=== PATIENT | male | born 1975 | race Caucasian/White ===

== ENCOUNTER 2016-11-22 13:08 | Inpatient (IN) | payer BC ==
[2016-11-22] MEDS ORDERED: HYDROmorphone* 1 MG/ML 1 ML SYR IV ONE ×2 (13:32→15:26)
[2016-11-22] MEDS ORDERED: NS 0.9% 1000 ML* 1,000 ML IV ONE (13:32)
[2016-11-22] MEDS ORDERED: Ondansetron INJ* 2 MG/ML VIAL IV ONE ×2 (13:32→15:26)
[2016-11-22 14:09] LABS: Hematocrit 44 % (42-52); Hemoglobin 14.8 g/dl (14.0-18.0); Mean Corpuscular HGB Conc 34 g/dl (31-36); Mean Corpuscular Hemoglobin 30 pg (27-31); Mean Corpuscular Volume 88 fL (80-94); Red Blood Count 5.01 10^6/ul (4.0-5.4); Red Cell Distribution Width 13 % (10.5-15)
[2016-11-22 14:15] LABS: Comments Flag Yes
[2016-11-22 14:16] LABS: Add Diff/Slide Review? Slide Review Added
[2016-11-22 14:20] LABS: ALT 27 U/L (7-52); Alkaline Phosphatase 83 U/L (34-104); BUN/Creatinine Ratio 9.9 (8-20); Blood Urea Nitrogen 9 mg/dL (6-24); C Reactive Protein 101.08 mg/L (< 5.00); CO2 Carbon Dioxide 20 mmol/L (22-32); Chloride 104 mmol/L (101-111); EGFR African American 118.7 (>60); EGFR Non-African American 92.3 (>60); Globulin 3.2 g/dL (2-4); Glucose 125 mg/dL (70-100); Lipase < 10 U/L (11.0-82.0); Sodium 134 mmol/L (133-145); Total Protein 7.2 g/dL (6.4-8.9)
--- NOTE | 2016-11-22 14:26 | RAD ---
INDICATION: Suprapubic pain COMPARISON: None TECHNIQUE: Noncontrast axial source images were acquired from the level hemidiaphragms to the symphysis pubis as part of CT imaging for renal stone. Lung bases: The lung bases are clear. Liver: The liver is normal in size. Noncontrast imaging shows no evidence of a hepatic mass or ductal dilatation. Gallbladder: There are no calcified gallstones. There is no evidence of wall thickening or pericholecystic fluid.. Spleen: The spleen is normal in size. The noncontrast CT appearance is normal. Pancreas: Noncontrast imaging shows no pancreatic mass or ductal dilitation. Adrenal glands: No masses are identified. Kidneys/Bladder: There is no evidence of nephrolithiasis or CT evidence of hydronephrosis. Noncontrast imaging shows no evidence of a renal mass. The bladder is unremarkable.. Adenopathy: There is no evidence of intraperitoneal or retroperitoneal adenopathy. Evaluation is limited without oral contrast. Fluid collections: There is mesenteric stranding at the level of the inflammatory change of the sigmoid colon (see below). Vessels: The aorta and iliac vessels are normal in caliber. There are no significant atherosclerotic changes. The IVC appears normal Pelvic organs: The uterus and adnexa appear normal GI tract: Evaluation of the bowel is limited without oral contrast. The upper GI tract is unremarkable. There is bowel wall thickening with extensive inflammatory change with mucosal thickening and perienteric stranding at the level of the sigmoid colon. There is adjacent phlegmonous change with multiple tiny punctate foci of extraluminal air. The findings suggest a contained perforation and probable early abscess formation. There is no current organized abscess with central liquefaction. Soft tissues: No soft tissue abnormalities of the extraperitoneal abdomen or pelvis are identified. Osseous structures: There are no acute osseous findings. IMPRESSION: 1. Renal stone imaging demonstrates no CT evidence of urolithiasis. 2. Extensive sigmoid inflammatory change with contained perforation, phlegmonous change, and suspected early abscess formation. No current organized abscess that would be amenable to percutaneous intervention
[2016-11-22 14:32] LABS: Anion Gap 10 mmol/L (2-11)
[2016-11-22] MEDS ORDERED: Ciprofloxacin 400MG IVPREMIX(* 400 MG/200 ML BAG IVPB ONE (14:36)
[2016-11-22] MEDS ORDERED: metroNIDAZOLE IV 500 MG/100ML* 500 MG/100 ML BAG IVPB ONE (14:36)
[2016-11-22] MEDS ORDERED: Ondansetron INJ* 2 MG/ML VIAL IV PRN (15:29)
--- NOTE | 2016-11-22 17:00 | CONS ---
CC: Edwin Amador MD. CONSULTATION REPORT: DATE OF CONSULT: 11/22/16 CHIEF COMPLAINT: Abdominal pain. HISTORY OF PRESENT ILLNESS: The patient is a 40-year-old male, who presents with approximately 4 da ys of abdominal pain, which has gradually been building and still gotten to be quite severe. He den ies any accident, injury or trauma. He has not eaten anything unusual. He has not had nausea or vo miting. He has not had diarrhea. He has not had any blood in the stool. His appetite has been rel atively normal. His bowel function up to last day or 2 has been pretty normal. Urination is normal . He denies fever or chills and no acquaintances or friends are similarly ill. PAST MEDICAL HISTORY: Benign. PAST SURGICAL HISTORY: Negative. MEDICATIONS: He takes occasional Zyrtec for environmental allergies and occasional Zantac for heart burn symptoms. ALLERGIES: He quotes PENICILLIN. FAMILY HISTORY: Noncontributory. There is no bleeding tendencies or anesthesia reactions. 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 He is not . His closest relative is his mother who lives down in the [facility]. He is a nonsmoker. He does n ot really drink, does not use any drugs or illicit substances. MULTI-SYSTEM REVIEW: Negative for any cardiac disease, chest pain, heart pain, angina pain, or regu lar heartbeat. No emphysema, bronchitis, or lung disease. No hepatobiliary history. No diabetes, thyroid or other endocrine. No GI history. No colitis, irritable bowel, spastic colon, Crohn's dise ase or the like. No previous diverticulitis or infections. No history. No neuromuscular or psy ch issues. PHYSICAL EXAMINATION: He is a well-developed, well-nourished obese appearing male, consistent with stated age. Skin is warm and well perfused. He is not diaphoretic. He is not jaundiced. He is af ebrile. Pulse is 75 and regular. Respirations 20 and unlabored. O2 saturation is 97%. Blood press ure 154/78. Neck is supple without adenopathy. Lungs are clear bilaterally. Heart is regular with out any abnormal sounds. Abdomen is obese and soft and quite tender in the lower abdomen mostly in the suprapubic region. There is some rebound tenderness referred to that area. There is little bit of guarding. There are no palpable masses or hernia. Extremities are well perfused and without ed kay. DIAGNOSTIC STUDIES/LAB DATA: Laboratory studies reveal white blood count of 15,000 with a slight le ft shift. Hemoglobin and platelet count are normal. Electrolytes are normal. BUN, creatinine, LFT s are normal. Lipase normal. C-reactive protein elevated 101. He has had a CT scan of the abdomen and pelvis, which shows what appears to be phlegmon around the region of the sigmoid colon just abo ve the bladder. There is evidence of microperforation in that area, but no discrete abscess. No re mote free air or free fluid. IMPRESSION: A 40-year-old male with sign and symptoms consistent with acute diverticulitis with mariluz roperforation well contained. RECOMMENDATION: I recommend bowel rest, intravenous antibiotics, intravenous hydration, analgesia, and antiemetics. I have discussed with him that at this time, there is no need for surgery and ther e is a reasonable likelihood that he will resolve without surgical intervention. He understands the situation and he understands that there is a possibility that he would ultimately require a surgery dependent upon his response to the current treatment. All of his questions have been answered and we will continue to follow him along with you. [id number]/[facility] #: [id number]
[2016-11-22] MEDS: NS 0.9% 1000 ML* 1,000 ML IV SCH (17:22)
--- NOTE | 2016-11-22 18:10 | ED ---
Garcia Roberson Benjamin, scribed for Nacho Ford MD on 11/22/16 at 1335 . Abdominal Pain/Male - HPI Summary HPI Summary: 40yo male comes with N/V, and abdominal pain. Symptoms first started on Monday with abdominal pain. Pt first thought he was constipated, but pt also started to feel nauseous and had vomited several times. Pain also became more intense, pt reports waves of intense pain coming and going. Palpation and road bumps worsens the pain. Drive to ED also worsened his pain. - History of Current Complaint Chief Complaint: EDAbdPain Stated Complaint: ABD PAIN Time Seen by Provider: 11/22/16 13:17 Hx Obtained From: Patient Onset/Duration: Gradual Onset, Still Present, Worse Since - today Timing: Intermittent Severity Initially: Moderate Severity Currently: Moderate Pain Intensity: 8 Pain Scale Used: 0-10 Numeric Location: Diffuse Radiates: No Aggravating Factor(s): Movement, Other: - touch Alleviating Factor(s): Nothing Associated Signs And Symptoms: Positive: Nausea, Vomiting - Allergies/Home Medications Allergies/Adverse Reactions: Allergies Allergy/AdvReac Type Severity Reaction Status Date / Time Penicillins Allergy Anaphylatic Verified 11/22/16 13:13 Shock Home Medications: Home Medications NK [No Home Medications Reported] 11/22/16 [History Confirmed 11/22/16] PMH/Surg Hx/FS Hx/Imm Hx Cardiovascular History: Denies: Hx Coronary Artery Disease, Hx Hypertension Infectious Disease History: No Infectious Disease History: Denies: Traveled Outside the [place] in Last 30 Days - Family History Known Family History: Positive: Diabetes - Social History 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 Lives: Alone Alcohol Use: Occasionally Substance Use Type: Reports: None Smoking Status (MU): Never Smoked Tobacco Review of Systems Constitutional: Negative Negative: Fever Eyes: Negative ENT: Negative Cardiovascular: Negative Negative: Chest Pain Positive: Shortness Of Breath Positive: Abdominal Pain - diffuse, Vomiting, Nausea Genitourinary: Negative Musculoskeletal: Negative Skin: Negative Neurological: Negative Psychological: Normal All Other Systems Reviewed And Are Negative: Yes Physical Exam Triage Information Reviewed: Yes Vital Signs On Initial Exam: Initial Vitals Temp Pulse Resp BP Pulse Ox 97.3 F 73 16 154/90 97 11/22/16 13:10 11/22/16 13:10 11/22/16 13:10 11/22/16 13:10 11/22/16 13:10 Completion Of Physical Exam Limited Due To: Dementia Appearance: Positive: Well-Appearing, Pain Distress - mild, Obese Skin: Positive: Warm, Skin Color Reflects Adequate Perfusion, Dry Head/Face: Positive: Normal Head/Face Inspection Eyes: Positive: Normal ENT: Positive: Normal ENT inspection, Hearing grossly normal Neck: Positive: Supple, Nontender Respiratory/Lung Sounds: Positive: Clear to Auscultation, Breath Sounds Present Cardiovascular: Positive: RRR. Negative: Murmur Abdomen Description: Positive: Soft, Other: - positive for rebound.. Negative: Nontender - diffuse tenderness to palpation. Unable to tell exact location of the pain Bowel Sounds: Positive: Present Musculoskeletal: Positive: Normal, Strength/ROM Intact Neurological: Positive: Normal, Sensory/Motor Intact, Alert, Oriented to Person Place, Time Psychiatric: Positive: Affect/Mood Appropriate - Radiant Coma Scale Coma Scale Total: 15 Diagnostics - Vital Signs Vital Signs Temp Pulse Resp BP Pulse Ox 11/22/16 13:21 75 97 11/22/16 13:19 154/78 11/22/16 13:18 97.6 F 77 20 154/78 97 11/22/16 13:10 97.3 F 73 16 154/90 97 - Laboratory Lab Results: Lab Results 11/22/16 11/22/16 11/22/16 Range/Units 13:45 13:45 13:45 WBC 15.0 H (3.5-10.8) 10^3/ul RBC 5.01 (4.0-5.4) 10^6/ul Hgb 14.8 (14.0-18.0) g/dl Hct 44 (42-52) % MCV 88 (80-94) fL MCH 30 (27-31) pg MCHC 34 (31-36) g/dl RDW 13 (10.5-15) % Plt Count 202 (150-450) 10^3/ul MPV Not Reportable Neut % (Auto) 87.5 H (38-83) % Lymph % (Auto) 5.1 L (25-47) % [place] % (Auto) 6.2 (1-9) % Eos % (Auto) 0.8 (0-6) % Baso % (Auto) 0.4 (0-2) % Absolute Neuts (auto) 13.2 H (1.5-7.7) 10^3/ul Absolute Lymphs (auto) 0.8 L (1.0-4.8) 10^3/ul Absolute Monos (auto) 0.9 H (0-0.8) 10^3/ul Absolute Eos (auto) 0.1 (0-0.6) 10^3/ul Absolute Basos (auto) 0.1 (0-0.2) 10^3/ul Absolute Nucleated RBC Not Reportable Nucleated RBC % Not Reportable Sodium 134 (133-145) mmol/L Potassium TNP Chloride 104 (101-111) mmol/L Carbon Dioxide 20 L (22-32) mmol/L Anion Gap 10 (2-11) mmol/L BUN 9 (6-24) mg/dL Creatinine 0.91 (0.67-1.17) mg/dL Est GFR ( Amer) 118.7 (>60) Est GFR (Non-Af Amer) 92.3 (>60) BUN/Creatinine Ratio 9.9 (8-20) Glucose 125 H (70-100) mg/dL Lactic Acid 0.8 (0.5-2.0) mmol/L Calcium 9.0 (8.6-10.3) mg/dL Total Bilirubin 0.80 (0.2-1.0) mg/dL AST TNP ALT 27 (7-52) U/L Alkaline Phosphatase 83 (34-104) U/L C-Reactive Protein 101.08 H (< 5.00) mg/L Total Protein 7.2 (6.4-8.9) g/dL Albumin 4.0 (3.2-5.2) g/dL Globulin 3.2 (2-4) g/dL Albumin/Globulin Ratio 1.3 (1-3) Lipase < 10 L (11.0-82.0) U/L Result Diagrams: 11/22/16 13:45 11/22/16 15:16 Lab Statement: Any lab studies that have been ordered have been reviewed, and results considered in the medical decision making process. - CT Abd/Pelv CT W CT Interpretation: Positive (See Comments) - IMPRESSION: 1. Renal stone imaging demonstrates no CT evidence of urolithiasis. 2. Extensive sigmoid inflammatory change with contained perforation, phlegmonous change, and suspected early abscess formation. No current organized abscess that would be amenable to percutaneous intervention CT Interpretation Completed By: Radiologist Abdominal Pain Fem Course/Dx - Course Course Of Treatment: Reviewed pts medication and allergy lists. High blood pressure noted. Discussed with Dr. Amador (Surgery) at 14:42 for pt consult Assessment/Plan: Mr. Schroeder came in with severe low abdominal pain that came on slowly since monday and got significantly worse yesterday. He had rebound symptoms when he arrived and a leukocytosis. A CT revealed peritonitis likely from diverticulitis. - Diagnoses Provider Diagnoses: Peritonitis of undetermined cause - Critical Care Time Critical Care Time: 30-74 min Discharge - Discharge Plan Condition: Stable Disposition: ADMITTED TO [facility] documentation as recorded by the Garcia krishnamurthy Benjamin accurately reflects the service I personally performed and the decisions made by me, Nacho Ford MD.
[2016-11-22] MEDS: HYDROmorphone* 1 MG/ML 1 ML SYR IV PRN ×2 (18:14→23:10)
[2016-11-22] MEDS ORDERED: HYDROmorphone* 2 MG/ML 1 ML SYR IV SLOW PU ONE (19:28)
[2016-11-22] MEDS: oxyCODONE TAB* 5 MG TAB PO PRN (20:00)
[2016-11-22] MEDS: Heparin VIAL(*) 5000 UNITS/ML VIAL (FIVE THOUSAND) SUBCUT SCH (20:22)
[2016-11-22] MEDS: Acetaminophen TAB* 325 MG PO PRN (20:30)
--- NOTE | 2016-11-22 20:46 | HP ---
HISTORY AND PHYSICAL: DATE OF ADMISSION: 11/22/16 PRIMARY CARE PROVIDER: To be established at [facility]. CHIEF COMPLAINT: Abdominal pain. HISTORY OF PRESENT ILLNESS: Mr. 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 Monday morning, he woke up with abdominal discomfort that he described low in the abdomen and mostly in the center. He thought it was perhaps related to alcohol he drank the night before. He states that he went about this weekend with mild discomfort. He states that over the weekend, his bowel movements were strained and he felt as if he was constipated. Monday night, the pain started to worsen. Monday, he tried a salt water flush (drank a mixture to try to flush his bowels) and noted that he had multiple liquidy bowel movements following this. He states this pain was slightly better through Monday afternoon. At approximately midnight on the morning of admission, the patient's pain was much worse. He vomited on the morning of admission. He continues to have severe abdominal pain that he rates as 8/10. He also notes that he woke up drenched in sweat this morning. PAST MEDICAL HISTORY: None. PAST SURGICAL HISTORY: 1. Deviated septum repair. 2. [place] teeth extraction. MEDICATIONS: 1. Zyrtec 10 mg p.o. daily. 2. Zantac p.r.n. ALLERGIES: PENICILLIN. FAMILY HISTORY: Mom is living, she is 66. She has questionable heart disease. Dad is living, he is 69 and healthy. SOCIAL HISTORY: The patient is a nonsmoker. He drinks alcohol on occasion. 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 He is not . He has no children. He indicates that his mom, Mignon Whitaker, would be his healthcare proxy. REVIEW OF SYSTEMS: In addition to the above issues, the patient states that his appetite has been poor over the last few days. Otherwise, a complete 11- system review of systems is obtained, pertinent positives and negatives are as per HPI, and otherwise negative. PHYSICAL EXAMINATION GENERAL: The patient is a well-developed, obese, middle-aged male lying in the stretcher, in no acute distress. VITAL SIGNS: Blood pressure 134/80, pulse 69, respirations 16, temp 97.6, O2 sat 98% on room air. HEENT: Pupils are equal, they are round, they react to light. Extraocular muscles are intact. Oropharynx is clear. Oral mucosa is moist. NECK: There is no submandibular, cervical, or supraclavicular adenopathy. Thyroid is not enlarged. No thyroid nodules are noted. PULMONARY: Lungs are clear to auscultation bilaterally. CARDIAC: Normal S1 and S2. Regular rate and rhythm. I do not appreciate any murmurs. ABDOMEN: Bowel sounds are present. Abdomen is obese, soft, slightly tender to palpation in the low center abdomen and right lower quadrant. MUSCULOSKELETAL: There is no cyanosis or clubbing of the digits. There is full active range of motion of all 4 extremities. NEURO: Cranial nerves II through XII are grossly intact. Sensation is intact to light touch throughout. Strength is 5/5 and symmetric, both upper and lower extremities bilaterally. PSYCH: The patient is alert, he is oriented x3. Affect appears appropriate. SKIN: Warm and dry. There are no rashes. DIAGNOSTIC STUDIES/LAB DATA: WBC 15.0, hemoglobin 14.8, hematocrit 44, platelets 202. Sodium 134, potassium 4.3, chloride 104, CO2 20, BUN 9, creatinine 0.91, glucose 125, lactic acid 0.8, calcium 9.0. Bilirubin 0.8, AST 18, ALT 27, alk phos 83. CRP 101.08. Albumin 4.0, lipase less than 10. CT abdomen and pelvis: Reveals no evidence of urolithiasis. Extensive sigmoid inflammatory change with contained perforation, phlegmonous change, and suspected early abscess formation is noted. No organized abscess that would be amenable to percutaneous intervention is noted. ASSESSMENT AND PLAN: Mr. Schroeder is a 40-year-old male, who has had moderate- to- severe abdominal pain since this past Monday (4 days prior to admission) and is found to have diverticulitis on CT scan. 1. Diverticulitis with microperforation: At this point, the patient has been seen in consultation by General Surgery. Recommendation is for either clears or bowel rest in addition to IV antibiotics. The patient has been started on IV ciprofloxacin and IV Flagyl. The patient will be given a clear liquid diet. Serial abdominal exams will be followed. The patient states he has not had any bowel movements since yesterday after he completed the salt water flush. At this point, we will monitor his white blood cell count, his fever curve, and signs for developing abscess intraabdominally. The patient states that he is due to fly to [facility] to [place] next week; however, it is likely he will be unable to make this commitment, which he understands. 2. DVT prophylaxis: According to the Adult Thrombosis Prophylaxis Risk Factor Assessment Guide, the patient has a total risk factor score of 1 making him low risk. He will be placed on heparin 5000 units subcutaneous q.12 hours. 3. Code status is full, and again the patient indicates that his mom, Mignon Whitaker, phone number [phone] is his healthcare proxy. TIME SPENT: Fifty-five minutes was spent admitting this patient. [id number]/[facility] #: [id number] CHRISTINA
[2016-11-22] MEDS: metroNIDAZOLE IV 500 MG/100ML* 500 MG/100 ML BAG IVPB SCH (21:23)
[2016-11-22 23:30] LABS: Urine Bacteria Absent (Absent); Urine Bilirubin Negative (Negative); Urine Glucose Negative (Negative); Urine Nitrite Negative (Negative)
[2016-11-23] MEDS: oxyCODONE TAB* 5 MG TAB PO PRN ×5 (00:22→19:28)
[2016-11-23] MEDS: Ciprofloxacin 400MG IVPREMIX(* 400 MG/200 ML BAG IVPB SCH ×2 (02:58→15:10)
[2016-11-23] MEDS: metroNIDAZOLE IV 500 MG/100ML* 500 MG/100 ML BAG IVPB SCH ×3 (05:44→21:40)
[2016-11-23 06:06] LABS: Hematocrit 40 % (42-52); Hemoglobin 13.4 g/dl (14.0-18.0); Mean Corpuscular HGB Conc 34 g/dl (31-36); Mean Corpuscular Hemoglobin 30 pg (27-31); Mean Corpuscular Volume 88 fL (80-94); Mean Platelet Volume 8 um3 (7.4-10.4); Red Blood Count 4.49 10^6/ul (4.0-5.4); Red Cell Distribution Width 13 % (10.5-15); White Blood Count 12.3 10^3/ul (3.5-10.8)
[2016-11-23] MEDS: HYDROmorphone* 1 MG/ML 1 ML SYR IV PRN ×5 (06:07→21:39)
[2016-11-23 06:22] LABS: BUN/Creatinine Ratio 8.3 (8-20); Calcium 8.6 mg/dL (8.6-10.3); EGFR African American 97.4 (>60); EGFR Non-African American 75.7 (>60); Potassium 3.7 mmol/L (3.5-5.0)
[2016-11-23] MEDS: Heparin VIAL(*) 5000 UNITS/ML VIAL (FIVE THOUSAND) SUBCUT SCH ×2 (08:24→21:39)
[2016-11-23] MEDS: NS 0.9% 1000 ML* 1,000 ML IV SCH (08:24)
[2016-11-23] MEDS: Acetaminophen TAB* 325 MG PO PRN ×3 (08:24→18:12)
--- NOTE | 2016-11-23 08:28 | PN ---
Progress Note - Progress Note Date of Service: 11/23/16 Note: HD #2 for diverticulitis with contained perf. Feels better, decreased pain, no N/V, dick liquids po VS OK, Tm100, WBC down Abd--obese, soft, much less tender, no peritonitis IMP: Responding well to iv abx. Continue same. Cont liquid diet.
--- NOTE | 2016-11-23 14:07 | PN ---
Subjective Date of Service: 11/23/16 Interval History: Pt is feeling better today. His pain is less. No BM yet. He is tolerating clear liquids without any worsening of his pain. No SOB or CP. Objective Active Medications: Acetaminophen (Tylenol Tab*) 650 mg PO Q4H PRN PRN Reason: PAIN Last Admin: 11/23/16 13:23 Dose: 650 mg Heparin Sodium (Porcine) (Heparin Vial(*)) 5,000 units SUBCUT Q12HR [facility] Last Admin: 11/23/16 08:24 Dose: 5,000 units Hydromorphone HCl (Dilaudid Iv*) 1 mg IV Q4H PRN PRN Reason: PAIN Last Admin: 11/23/16 12:04 Dose: 1 mg Ciprofloxacin/Dextrose (Cipro 400 Mg Ivpremix(*)) 400 mg in 200 mls @ 200 mls/ hr IVPB Q12H [facility] Last Admin: 11/23/16 02:58 Dose: 200 mls/hr Metronidazole/Sodium Chloride (Flagyl 500 Mg Ivpb*) 500 mg in 100 mls @ 100 mls /hr IVPB Q8H [facility] Last Admin: 11/23/16 13:23 Dose: 100 mls/hr Sodium Chloride (Ns 0.9% 1000 Ml*) 1,000 mls @ 100 mls/hr IV PER RATE [facility] Last Admin: 11/23/16 08:24 Dose: 100 mls/hr Ondansetron HCl (Zofran Inj*) 4 mg IV Q6H PRN PRN Reason: NAUSEA Oxycodone HCl (Roxycodone Tab*) 10 mg PO Q4H PRN PRN Reason: PAIN Last Admin: 11/23/16 10:15 Dose: 10 mg Vital Signs 11/22/16 11/22/16 11/22/16 15:30 15:39 15:41 Temperature Pulse Rate 74 Respiratory 18 16 Rate Blood Pressure (mmHg) O2 Sat by Pulse 97 Oximetry 11/22/16 11/22/16 11/22/16 15:42 16:00 16:41 Temperature Pulse Rate 73 69 Respiratory 16 Rate Blood Pressure 149/84 134/80 (mmHg) O2 Sat by Pulse 100 98 Oximetry 11/22/16 11/22/16 11/22/16 16:58 17:03 18:14 Temperature 99.0 F 99.0 F Pulse Rate 73 73 Respiratory 16 16 20 Rate Blood Pressure 137/75 137/75 (mmHg) O2 Sat by Pulse 100 100 Oximetry 11/22/16 11/22/16 11/22/16 19:14 19:32 19:45 Temperature 99.7 F Pulse Rate 79 Respiratory 19 23 20 Rate Blood Pressure 149/69 (mmHg) O2 Sat by Pulse 100 Oximetry 11/22/16 11/22/16 11/22/16 19:57 20:00 20:56 Temperature Pulse Rate Respiratory 24 24 18 Rate Blood Pressure (mmHg) O2 Sat by Pulse Oximetry 11/22/16 11/22/16 11/22/16 22:00 23:10 23:32 Temperature 99.2 F Pulse Rate 75 Respiratory 18 19 16 Rate Blood Pressure 134/68 (mmHg) O2 Sat by Pulse 94 Oximetry 11/23/16 11/23/16 11/23/16 00:10 00:22 02:22 Temperature Pulse Rate Respiratory 18 19 17 Rate Blood Pressure (mmHg) O2 Sat by Pulse Oximetry 11/23/16 11/23/16 11/23/16 05:45 05:48 06:07 Temperature 99.5 F Pulse Rate 81 Respiratory 18 16 21 Rate Blood Pressure 149/58 (mmHg) O2 Sat by Pulse 98 Oximetry 11/23/16 11/23/16 11/23/16 07:07 07:26 07:42 Temperature 100.7 F Pulse Rate 79 Respiratory 16 16 16 Rate Blood Pressure 142/61 (mmHg) O2 Sat by Pulse 98 Oximetry 11/23/16 11/23/16 11/23/16 10:15 11:15 12:04 Temperature 99.1 F Pulse Rate 69 Respiratory 18 16 18 Rate Blood Pressure 123/58 (mmHg) O2 Sat by Pulse 99 Oximetry 11/23/16 12:15 Temperature Pulse Rate Respiratory 18 Rate Blood Pressure (mmHg) O2 Sat by Pulse Oximetry Oxygen Devices in Use Now: None Appearance: Middle aged obese male lying in bed, NAD Eyes: No Scleral Icterus Ears/Nose/Mouth/Throat: Mucous Membranes Moist Respiratory: Symmetrical Chest Expansion and Respiratory Effort, Clear to Auscultation Cardiovascular: NL Sounds; No Murmurs; No JVD, RRR, No Edema Abdominal: - - BS+ soft, ND, tender to palpation in the low left quadrant Extremities: No Clubbing, Cyanosis Skin: No Rash or Ulcers, No Nodules or Sclerosis Neurological: Alert and Oriented x 3 Result Diagrams: 11/23/16 05:45 11/23/16 05:45 Additional Lab and Data: Lab Results 11/22/16 11/22/16 11/22/16 Range/Units 13:45 13:45 13:45 WBC 15.0 H (3.5-10.8) 10^3/ul RBC 5.01 (4.0-5.4) 10^6/ul Hgb 14.8 (14.0-18.0) g/dl Hct 44 (42-52) % MCV 88 (80-94) fL MCH 30 (27-31) pg MCHC 34 (31-36) g/dl RDW 13 (10.5-15) % Plt Count 202 (150-450) 10^3/ul MPV Not Reportable Neut % (Auto) 87.5 H (38-83) % Lymph % (Auto) 5.1 L (25-47) % [place] % (Auto) 6.2 (1-9) % Eos % (Auto) 0.8 (0-6) % Baso % (Auto) 0.4 (0-2) % Absolute Neuts (auto) 13.2 H (1.5-7.7) 10^3/ul Absolute Lymphs (auto) 0.8 L (1.0-4.8) 10^3/ul Absolute Monos (auto) 0.9 H (0-0.8) 10^3/ul Absolute Eos (auto) 0.1 (0-0.6) 10^3/ul Absolute Basos (auto) 0.1 (0-0.2) 10^3/ul Absolute Nucleated RBC Not Reportable Nucleated RBC % Not Reportable Sodium 134 (133-145) mmol/L Potassium TNP Chloride 104 (101-111) mmol/L Carbon Dioxide 20 L (22-32) mmol/L Anion Gap 10 (2-11) mmol/L BUN 9 (6-24) mg/dL Creatinine 0.91 (0.67-1.17) mg/dL Est GFR ( Amer) 118.7 (>60) Est GFR (Non-Af Amer) 92.3 (>60) BUN/Creatinine Ratio 9.9 (8-20) Glucose 125 H (70-100) mg/dL Lactic Acid 0.8 (0.5-2.0) mmol/L Calcium 9.0 (8.6-10.3) mg/dL Total Bilirubin 0.80 (0.2-1.0) mg/dL AST TNP ALT 27 (7-52) U/L Alkaline Phosphatase 83 (34-104) U/L C-Reactive Protein 101.08 H (< 5.00) mg/L Total Protein 7.2 (6.4-8.9) g/dL Albumin 4.0 (3.2-5.2) g/dL Globulin 3.2 (2-4) g/dL Albumin/Globulin Ratio 1.3 (1-3) Lipase < 10 L (11.0-82.0) U/L Assess/Plan/Problems-Billing Mr Schroeder is a 40 yo M who has no significant PMHx who presented to the ER with c/o abdominal pain and was foudn to have diverticulitis of the sigmoid colon with contained microperforation. - Patient Problems (1) Diverticulitis of large intestine with perforation without abscess Current Visit: Yes Status: Acute Code(s): K57.20 - DVTRCLI OF LG INT W PERFORATION AND ABSCESS W/O BLEEDING SNOMED Code(s): 2237944 Comment: The patient is improved slightly today. His WBC count has trended down but not yet normalized. His pain is improved. He continues to have low grade fever. Will continue with the clear liquid diet and IV Abx. Appreciate surgery follow up. ? repeat CT in several days. (2) DVT prophylaxis Current Visit: Yes Status: Acute Code(s): CRM9067 - SNOMED Code(s): 126970191 Comment: SQ heparin (3) Full code status Current Visit: Yes Status: Acute Code(s): Z78.9 - OTHER SPECIFIED HEALTH STATUS SNOMED Code(s): 971451331
[2016-11-23] MEDS: Omeprazole CAP* 20 MG PO SCH (19:28)
[2016-11-24] MEDS: oxyCODONE TAB* 5 MG TAB PO PRN ×5 (00:08→23:06)
[2016-11-24] MEDS: HYDROmorphone* 1 MG/ML 1 ML SYR IV PRN ×3 (01:04→21:45)
[2016-11-24] MEDS: Ciprofloxacin 400MG IVPREMIX(* 400 MG/200 ML BAG IVPB SCH ×2 (03:10→16:25)
[2016-11-24] MEDS: Omeprazole CAP* 20 MG PO SCH (06:10)
[2016-11-24] MEDS: metroNIDAZOLE IV 500 MG/100ML* 500 MG/100 ML BAG IVPB SCH ×3 (06:10→22:43)
[2016-11-24] MEDS: Heparin VIAL(*) 5000 UNITS/ML VIAL (FIVE THOUSAND) SUBCUT SCH ×2 (08:14→21:45)
[2016-11-24] MEDS: Acetaminophen TAB* 325 MG PO PRN (10:07)
--- NOTE | 2016-11-24 10:17 | PN ---
Subjective Date of Service: 11/24/16 Interval History: Pt is feeling better today. He states his pain is quite a bit less. He has had no further sweats. He has tolerated. Clears. He is anxious to get home as soon as possible. Objective Active Medications: Acetaminophen (Tylenol Tab*) 650 mg PO Q4H PRN PRN Reason: PAIN Last Admin: 11/23/16 18:12 Dose: 650 mg Heparin Sodium (Porcine) (Heparin Vial(*)) 5,000 units SUBCUT Q12HR [facility] Last Admin: 11/24/16 08:14 Dose: 5,000 units Hydromorphone HCl (Dilaudid Iv*) 1 mg IV Q3H PRN PRN Reason: PAIN Last Admin: 11/24/16 06:43 Dose: 1 mg Ciprofloxacin/Dextrose (Cipro 400 Mg Ivpremix(*)) 400 mg in 200 mls @ 200 mls/ hr IVPB Q12H [facility] Last Admin: 11/24/16 03:10 Dose: 200 mls/hr Metronidazole/Sodium Chloride (Flagyl 500 Mg Ivpb*) 500 mg in 100 mls @ 100 mls /hr IVPB Q8H [facility] Last Admin: 11/24/16 06:10 Dose: 100 mls/hr Omeprazole (Prilosec Cap*) 20 mg PO 0730 [facility] Last Admin: 11/24/16 06:10 Dose: 20 mg Ondansetron HCl (Zofran Inj*) 4 mg IV Q6H PRN PRN Reason: NAUSEA Oxycodone HCl (Roxycodone Tab*) 10 mg PO Q4H PRN PRN Reason: PAIN Last Admin: 11/24/16 04:27 Dose: 10 mg Vital Signs 11/23/16 11/23/16 11/23/16 10:15 11:15 11:25 Temperature 99.1 F 99.1 F Pulse Rate 69 69 Respiratory 18 16 16 Rate Blood Pressure 123/58 123/58 (mmHg) O2 Sat by Pulse 99 99 Oximetry 11/23/16 11/23/16 11/23/16 12:04 12:15 15:10 Temperature Pulse Rate Respiratory 18 18 18 Rate Blood Pressure (mmHg) O2 Sat by Pulse Oximetry 11/23/16 11/23/16 11/23/16 15:11 15:51 16:10 Temperature 98.5 F Pulse Rate 57 Respiratory 16 23 14 Rate Blood Pressure 117/61 (mmHg) O2 Sat by Pulse 99 Oximetry 11/23/16 11/23/16 11/23/16 18:12 19:12 19:28 Temperature Pulse Rate Respiratory 18 18 18 Rate Blood Pressure (mmHg) O2 Sat by Pulse Oximetry 11/23/16 11/23/16 11/23/16 19:36 20:00 21:28 Temperature 97.8 F Pulse Rate 60 Respiratory 21 20 18 Rate Blood Pressure 123/56 (mmHg) O2 Sat by Pulse 97 Oximetry 11/23/16 11/23/16 11/23/16 21:39 22:39 23:52 Temperature 98.4 F Pulse Rate 63 Respiratory 20 16 16 Rate Blood Pressure 120/69 (mmHg) O2 Sat by Pulse 100 Oximetry 11/24/16 11/24/16 11/24/16 00:08 01:04 02:04 Temperature Pulse Rate Respiratory 16 18 18 Rate Blood Pressure (mmHg) O2 Sat by Pulse Oximetry 11/24/16 11/24/16 11/24/16 02:08 03:27 04:27 Temperature 98.7 F Pulse Rate 56 Respiratory 18 16 18 Rate Blood Pressure 132/60 (mmHg) O2 Sat by Pulse 99 Oximetry 11/24/16 11/24/16 11/24/16 06:43 07:26 07:43 Temperature 98.9 F Pulse Rate 64 Respiratory 16 18 18 Rate Blood Pressure 128/64 (mmHg) O2 Sat by Pulse 98 Oximetry Oxygen Devices in Use Now: None Appearance: Middle aged male lying in bed, NAD Eyes: No Scleral Icterus Ears/Nose/Mouth/Throat: Mucous Membranes Moist Respiratory: Symmetrical Chest Expansion and Respiratory Effort, Clear to Auscultation Cardiovascular: NL Sounds; No Murmurs; No JVD, RRR, No Edema Abdominal: - - BS+ soft, ND, mildly tender to palpation in the LLQ Extremities: No Clubbing, Cyanosis Skin: No Rash or Ulcers, No Nodules or Sclerosis Neurological: Alert and Oriented x 3 Result Diagrams: 11/23/16 05:45 11/23/16 05:45 Additional Lab and Data: Lab Results 11/22/16 11/22/16 11/22/16 Range/Units 13:45 13:45 13:45 WBC 15.0 H (3.5-10.8) 10^3/ul RBC 5.01 (4.0-5.4) 10^6/ul Hgb 14.8 (14.0-18.0) g/dl Hct 44 (42-52) % MCV 88 (80-94) fL MCH 30 (27-31) pg MCHC 34 (31-36) g/dl RDW 13 (10.5-15) % Plt Count 202 (150-450) 10^3/ul MPV Not Reportable Neut % (Auto) 87.5 H (38-83) % Lymph % (Auto) 5.1 L (25-47) % [place] % (Auto) 6.2 (1-9) % Eos % (Auto) 0.8 (0-6) % Baso % (Auto) 0.4 (0-2) % Absolute Neuts (auto) 13.2 H (1.5-7.7) 10^3/ul Absolute Lymphs (auto) 0.8 L (1.0-4.8) 10^3/ul Absolute Monos (auto) 0.9 H (0-0.8) 10^3/ul Absolute Eos (auto) 0.1 (0-0.6) 10^3/ul Absolute Basos (auto) 0.1 (0-0.2) 10^3/ul Absolute Nucleated RBC Not Reportable Nucleated RBC % Not Reportable Sodium 134 (133-145) mmol/L Potassium TNP Chloride 104 (101-111) mmol/L Carbon Dioxide 20 L (22-32) mmol/L Anion Gap 10 (2-11) mmol/L BUN 9 (6-24) mg/dL Creatinine 0.91 (0.67-1.17) mg/dL Est GFR ( Amer) 118.7 (>60) Est GFR (Non-Af Amer) 92.3 (>60) BUN/Creatinine Ratio 9.9 (8-20) Glucose 125 H (70-100) mg/dL Lactic Acid 0.8 (0.5-2.0) mmol/L Calcium 9.0 (8.6-10.3) mg/dL Total Bilirubin 0.80 (0.2-1.0) mg/dL AST TNP ALT 27 (7-52) U/L Alkaline Phosphatase 83 (34-104) U/L C-Reactive Protein 101.08 H (< 5.00) mg/L Total Protein 7.2 (6.4-8.9) g/dL Albumin 4.0 (3.2-5.2) g/dL Globulin 3.2 (2-4) g/dL Albumin/Globulin Ratio 1.3 (1-3) Lipase < 10 L (11.0-82.0) U/L Assess/Plan/Problems-Billing Mr Schroeder is a 40 yo M who has no significant PMHx who presented to the ER with c/o abdominal pain and was foudn to have diverticulitis of the sigmoid colon with contained microperforation. - Patient Problems (1) Diverticulitis of large intestine with perforation without abscess Current Visit: Yes Status: Acute Code(s): K57.20 - DVTRCLI OF LG INT W PERFORATION AND ABSCESS W/O BLEEDING SNOMED Code(s): 6746256 Comment: The patient continues to improve. His pain is less. He is trying to go without pain medication. Continue IV Abx. Change oxycodone to 1-2 tabs q4hr so he can determine how much he needs. Will advance diet to full liquids. Surgery will follow up later today. (2) DVT prophylaxis Current Visit: Yes Status: Acute Code(s): HCI8861 - SNOMED Code(s): 942291719 Comment: SQ heparin (3) Full code status Current Visit: Yes Status: Acute Code(s): Z78.9 - OTHER SPECIFIED HEALTH STATUS SNOMED Code(s): 317130482
[2016-11-24] MEDS ORDERED: oxyCODONE TAB* 5 MG TAB PO PRN (10:21)
--- NOTE | 2016-11-24 17:46 | PN ---
Progress Note - Progress Note Date of Service: 11/24/16 Note: Surgery Progress: S: patient seen ~ 1500. States that he feels better; has been trying to tape down on his pain meds. Alex clears; order to adv to full liqs. Passing flatus; had a couple of small BMs. Current Medications Acetaminophen (Tylenol Tab*) 650 mg PO Q4H PRN PRN Reason: PAIN Last Admin: 11/24/16 10:07 Dose: 650 mg Heparin Sodium (Porcine) (Heparin Vial(*)) 5,000 units SUBCUT Q12HR [facility] Last Admin: 11/24/16 08:14 Dose: 5,000 units Hydromorphone HCl (Dilaudid Iv*) 1 mg IV Q3H PRN PRN Reason: PAIN Last Admin: 11/24/16 06:43 Dose: 1 mg Ciprofloxacin/Dextrose (Cipro 400 Mg Ivpremix(*)) 400 mg in 200 mls @ 200 mls/ hr IVPB Q12H [facility] Last Admin: 11/24/16 16:25 Dose: 200 mls/hr Metronidazole/Sodium Chloride (Flagyl 500 Mg Ivpb*) 500 mg in 100 mls @ 100 mls /hr IVPB Q8H [facility] Last Admin: 11/24/16 14:28 Dose: 100 mls/hr Omeprazole (Prilosec Cap*) 20 mg PO 0730 [facility] Last Admin: 11/24/16 06:10 Dose: 20 mg Ondansetron HCl (Zofran Inj*) 4 mg IV Q6H PRN PRN Reason: NAUSEA Oxycodone HCl (Roxycodone Tab*) 5 mg PO Q4H PRN PRN Reason: Pain 1-5 Last Admin: 11/24/16 14:37 Dose: 5 mg Oxycodone HCl (Roxycodone Tab*) 10 mg PO Q4H PRN PRN Reason: Pain 6-10 O: Vital Signs - 8 hr 11/24/16 11/24/16 11/24/16 10:07 11:21 14:37 Temperature 98.6 F Pulse Rate 61 Respiratory 18 18 18 Rate Blood Pressure 148/65 (mmHg) O2 Sat by Pulse 97 Oximetry 11/24/16 11/24/16 15:34 16:37 Temperature 98.9 F Pulse Rate 62 Respiratory 20 18 Rate Blood Pressure 121/58 (mmHg) O2 Sat by Pulse 99 Oximetry Intake and Output Last 24 Hours 11/22/16 11/23/16 11/24/16 11/25/16 06:59 06:59 06:59 06:59 Intake Total 3434 3681 1670 Balance 3434 3681 1670 Weight 347 lb Intake: IV Fluids 2194 191 ABX - FLAGYL 108 NS (0.9%) 894 83 Oral 1240 3490 1670 Other: Estimated Void Large Medium Medium Date of Last Bowel 11/21/16 Movement # Bowel Movements 0 0 1 Estimated Stool Amount Small Small # Voids 1 2 6 Gen: WN, obese in NAD Heart: reg Lungs: clear Abd: +BS; obese; moderate tenderness LLQ and suprapubic areas; remainder w/ min tenderness; some referred to LLQ Labs: none today A: sigmoid diverticulitis w/ micro perforation, improving on current IV Cipro/ Flagyl P: cont current medical tx; may consider change to po abx 11/25; discussed transition diet (and printed patient info)
[2016-11-25] MEDS: Ciprofloxacin 400MG IVPREMIX(* 400 MG/200 ML BAG IVPB SCH (02:54)
[2016-11-25 05:00] LABS: Hematocrit 43 % (42-52); Hemoglobin 14.8 g/dl (14.0-18.0); Mean Corpuscular HGB Conc 34 g/dl (31-36); Mean Corpuscular Hemoglobin 30 pg (27-31); Mean Corpuscular Volume 87 fL (80-94); Mean Platelet Volume 9 um3 (7.4-10.4); Red Blood Count 4.99 10^6/ul (4.0-5.4); Red Cell Distribution Width 12 % (10.5-15); White Blood Count 4.8 10^3/ul (3.5-10.8)
[2016-11-25 05:02] LABS: C Reactive Protein 128.58 mg/L (< 5.00); Calcium 9.1 mg/dL (8.6-10.3); EGFR African American 106.4 (>60); EGFR Non-African American 82.8 (>60); Potassium 3.6 mmol/L (3.5-5.0)
[2016-11-25] MEDS: metroNIDAZOLE IV 500 MG/100ML* 500 MG/100 ML BAG IVPB SCH (06:24)
[2016-11-25] MEDS: Heparin VIAL(*) 5000 UNITS/ML VIAL (FIVE THOUSAND) SUBCUT SCH (07:51)
[2016-11-25] MEDS: Omeprazole CAP* 20 MG PO SCH (07:51)
[2016-11-25 07:59] VITALS: BP 123/65
--- NOTE | 2016-11-25 08:16 | PN ---
Progress Note - Progress Note Date of Service: 11/25/16 Note: Day#2 SBO. Feels OK, more alert and talkative. Denies pain, N/V. NGT drainage small. AXR this AM without dilated loops of SB to my review. Abd: Obese, soft, minimally tender. Hernia soft, nontender. Impr: Resolving SBO. Would D/C NGT, start sips of clears. No need for surgery at this time.
--- NOTE | 2016-11-25 08:37 | PN ---
Progress Note - Progress Note Date of Service: 11/25/16 Note: HD#3 diverticulitis Afebrile, voiding well. Alex liquids Feels generally well, minimal pain. No N/V, No stool. Has appetite. Abd: Obese soft, mild LLQ and suprapubic tenderness, No rebound. WBC normal Impr: Resolving diverticulitis. Would advance diet and disch on 2 weeks of oral abx. F/U in office 1-2 wks.
--- NOTE | 2016-11-25 11:04 | PN ---
Subjective Date of Service: 11/25/16 Interval History: Pt is feeling better today. His pain is minimal. He has not had a BM. He has done ok with the full liquids. He wants to go home. Objective Active Medications: Acetaminophen (Tylenol Tab*) 650 mg PO Q4H PRN PRN Reason: PAIN Last Admin: 11/24/16 10:07 Dose: 650 mg Heparin Sodium (Porcine) (Heparin Vial(*)) 5,000 units SUBCUT Q12HR [facility] Last Admin: 11/25/16 07:51 Dose: 5,000 units Hydromorphone HCl (Dilaudid Iv*) 1 mg IV Q3H PRN PRN Reason: PAIN Last Admin: 11/24/16 21:45 Dose: 1 mg Ciprofloxacin/Dextrose (Cipro 400 Mg Ivpremix(*)) 400 mg in 200 mls @ 200 mls/ hr IVPB Q12H [facility] Last Admin: 11/25/16 02:54 Dose: 200 mls/hr Metronidazole/Sodium Chloride (Flagyl 500 Mg Ivpb*) 500 mg in 100 mls @ 100 mls /hr IVPB Q8H [facility] Last Admin: 11/25/16 06:24 Dose: 100 mls/hr Omeprazole (Prilosec Cap*) 20 mg PO 0730 [facility] Last Admin: 11/25/16 07:51 Dose: 20 mg Ondansetron HCl (Zofran Inj*) 4 mg IV Q6H PRN PRN Reason: NAUSEA Oxycodone HCl (Roxycodone Tab*) 5 mg PO Q4H PRN PRN Reason: Pain 1-5 Last Admin: 11/24/16 23:06 Dose: 5 mg Oxycodone HCl (Roxycodone Tab*) 10 mg PO Q4H PRN PRN Reason: Pain 6-10 Vital Signs 11/24/16 11/24/16 11/24/16 11:21 14:37 15:34 Temperature 98.6 F 98.9 F Pulse Rate 61 62 Respiratory 18 18 20 Rate Blood Pressure 148/65 121/58 (mmHg) O2 Sat by Pulse 97 99 Oximetry 11/24/16 11/24/16 11/24/16 16:37 19:33 20:00 Temperature 99.1 F Pulse Rate 64 Respiratory 18 20 18 Rate Blood Pressure 140/61 (mmHg) O2 Sat by Pulse 99 Oximetry 11/24/16 11/24/16 11/24/16 21:45 22:45 23:06 Temperature Pulse Rate Respiratory 18 18 16 Rate Blood Pressure (mmHg) O2 Sat by Pulse Oximetry 11/24/16 11/25/16 11/25/16 23:27 01:06 03:46 Temperature 98.4 F 97.9 F Pulse Rate 58 56 Respiratory 17 18 15 Rate Blood Pressure 140/64 117/53 (mmHg) O2 Sat by Pulse 98 98 Oximetry 11/25/16 11/25/16 07:28 08:00 Temperature 98.6 F Pulse Rate 56 Respiratory 18 20 Rate Blood Pressure 123/65 (mmHg) O2 Sat by Pulse 98 Oximetry Oxygen Devices in Use Now: None Appearance: Middle aged male lying in bed, NAD Eyes: No Scleral Icterus Ears/Nose/Mouth/Throat: Mucous Membranes Moist Respiratory: Symmetrical Chest Expansion and Respiratory Effort, Clear to Auscultation Cardiovascular: NL Sounds; No Murmurs; No JVD, RRR, No Edema Abdominal: - - BS+ soft, ND, mildly tender to palpation in the low LLQ Extremities: No Clubbing, Cyanosis Skin: No Rash or Ulcers, No Nodules or Sclerosis Neurological: Alert and Oriented x 3 Result Diagrams: 11/25/16 04:34 11/25/16 04:34 Additional Lab and Data: Lab Results 11/22/16 11/22/16 11/22/16 Range/Units 13:45 13:45 13:45 WBC 15.0 H (3.5-10.8) 10^3/ul RBC 5.01 (4.0-5.4) 10^6/ul Hgb 14.8 (14.0-18.0) g/dl Hct 44 (42-52) % MCV 88 (80-94) fL MCH 30 (27-31) pg MCHC 34 (31-36) g/dl RDW 13 (10.5-15) % Plt Count 202 (150-450) 10^3/ul MPV Not Reportable Neut % (Auto) 87.5 H (38-83) % Lymph % (Auto) 5.1 L (25-47) % [place] % (Auto) 6.2 (1-9) % Eos % (Auto) 0.8 (0-6) % Baso % (Auto) 0.4 (0-2) % Absolute Neuts (auto) 13.2 H (1.5-7.7) 10^3/ul Absolute Lymphs (auto) 0.8 L (1.0-4.8) 10^3/ul Absolute Monos (auto) 0.9 H (0-0.8) 10^3/ul Absolute Eos (auto) 0.1 (0-0.6) 10^3/ul Absolute Basos (auto) 0.1 (0-0.2) 10^3/ul Absolute Nucleated RBC Not Reportable Nucleated RBC % Not Reportable Sodium 134 (133-145) mmol/L Potassium TNP Chloride 104 (101-111) mmol/L Carbon Dioxide 20 L (22-32) mmol/L Anion Gap 10 (2-11) mmol/L BUN 9 (6-24) mg/dL Creatinine 0.91 (0.67-1.17) mg/dL Est GFR ( Amer) 118.7 (>60) Est GFR (Non-Af Amer) 92.3 (>60) BUN/Creatinine Ratio 9.9 (8-20) Glucose 125 H (70-100) mg/dL Lactic Acid 0.8 (0.5-2.0) mmol/L Calcium 9.0 (8.6-10.3) mg/dL Total Bilirubin 0.80 (0.2-1.0) mg/dL AST TNP ALT 27 (7-52) U/L Alkaline Phosphatase 83 (34-104) U/L C-Reactive Protein 101.08 H (< 5.00) mg/L Total Protein 7.2 (6.4-8.9) g/dL Albumin 4.0 (3.2-5.2) g/dL Globulin 3.2 (2-4) g/dL Albumin/Globulin Ratio 1.3 (1-3) Lipase < 10 L (11.0-82.0) U/L Microbiology and Other Data: Microbiology 11/22/16 23:14 Urine Culture - Final Urine No Growth (<1,000 CFU/mL) Assess/Plan/Problems-Billing Mr Schroeder is a 40 yo M who has no significant PMHx who presented to the ER with c/o abdominal pain and was foudn to have diverticulitis of the sigmoid colon with contained microperforation. - Patient Problems (1) Diverticulitis of large intestine with perforation without abscess Current Visit: Yes Status: Acute Code(s): K57.20 - DVTRCLI OF LG INT W PERFORATION AND ABSCESS W/O BLEEDING SNOMED Code(s): 3886829 Comment: Pt is even better today. Will d/c home on cipro and flagyl for another 14 days. He has been instructed on a low residue diet. I have sent an rx for oxycodone for pain control as an outpatient. He will follow up with Dr. Amador in about 1-2 weeks. He has been instructed to monitor for fever or worsened abdominal pain and be seen in the ER if he is to develop worsened symptoms. (2) DVT prophylaxis Current Visit: Yes Status: Acute Code(s): ZXG7653 - SNOMED Code(s): 633260169 Comment: SQ heparin (3) Full code status Current Visit: Yes Status: Acute Code(s): Z78.9 - OTHER SPECIFIED HEALTH STATUS SNOMED Code(s): 734629384 Status and Disposition: d/c home
--- NOTE | 2016-11-25 14:28 | PN ---
Subjective Date of Service: 11/25/16 Interval History: Pt is feeling better. He states he is not needing any pain medication at this time. He is anxious to go home. No BMs yet. Objective Vital Signs 11/24/16 11/24/16 11/24/16 14:37 15:34 16:37 Temperature 98.9 F Pulse Rate 62 Respiratory 18 20 18 Rate Blood Pressure 121/58 (mmHg) O2 Sat by Pulse 99 Oximetry 11/24/16 11/24/16 11/24/16 19:33 20:00 21:45 Temperature 99.1 F Pulse Rate 64 Respiratory 20 18 18 Rate Blood Pressure 140/61 (mmHg) O2 Sat by Pulse 99 Oximetry 11/24/16 11/24/16 11/24/16 22:45 23:06 23:27 Temperature 98.4 F Pulse Rate 58 Respiratory 18 16 17 Rate Blood Pressure 140/64 (mmHg) O2 Sat by Pulse 98 Oximetry 11/25/16 11/25/16 11/25/16 01:06 03:46 07:28 Temperature 97.9 F 98.6 F Pulse Rate 56 56 Respiratory 18 15 18 Rate Blood Pressure 117/53 123/65 (mmHg) O2 Sat by Pulse 98 98 Oximetry 11/25/16 08:00 Temperature Pulse Rate Respiratory 20 Rate Blood Pressure (mmHg) O2 Sat by Pulse Oximetry Oxygen Devices in Use Now: None Result Diagrams: 11/25/16 04:34 11/25/16 04:34 Additional Lab and Data: Lab Results 11/22/16 11/22/16 11/22/16 Range/Units 13:45 13:45 13:45 WBC 15.0 H (3.5-10.8) 10^3/ul RBC 5.01 (4.0-5.4) 10^6/ul Hgb 14.8 (14.0-18.0) g/dl Hct 44 (42-52) % MCV 88 (80-94) fL MCH 30 (27-31) pg MCHC 34 (31-36) g/dl RDW 13 (10.5-15) % Plt Count 202 (150-450) 10^3/ul MPV Not Reportable Neut % (Auto) 87.5 H (38-83) % Lymph % (Auto) 5.1 L (25-47) % [place] % (Auto) 6.2 (1-9) % Eos % (Auto) 0.8 (0-6) % Baso % (Auto) 0.4 (0-2) % Absolute Neuts (auto) 13.2 H (1.5-7.7) 10^3/ul Absolute Lymphs (auto) 0.8 L (1.0-4.8) 10^3/ul Absolute Monos (auto) 0.9 H (0-0.8) 10^3/ul Absolute Eos (auto) 0.1 (0-0.6) 10^3/ul Absolute Basos (auto) 0.1 (0-0.2) 10^3/ul Absolute Nucleated RBC Not Reportable Nucleated RBC % Not Reportable Sodium 134 (133-145) mmol/L Potassium TNP Chloride 104 (101-111) mmol/L Carbon Dioxide 20 L (22-32) mmol/L Anion Gap 10 (2-11) mmol/L BUN 9 (6-24) mg/dL Creatinine 0.91 (0.67-1.17) mg/dL Est GFR ( Amer) 118.7 (>60) Est GFR (Non-Af Amer) 92.3 (>60) BUN/Creatinine Ratio 9.9 (8-20) Glucose 125 H (70-100) mg/dL Lactic Acid 0.8 (0.5-2.0) mmol/L Calcium 9.0 (8.6-10.3) mg/dL Total Bilirubin 0.80 (0.2-1.0) mg/dL AST TNP ALT 27 (7-52) U/L Alkaline Phosphatase 83 (34-104) U/L C-Reactive Protein 101.08 H (< 5.00) mg/L Total Protein 7.2 (6.4-8.9) g/dL Albumin 4.0 (3.2-5.2) g/dL Globulin 3.2 (2-4) g/dL Albumin/Globulin Ratio 1.3 (1-3) Lipase < 10 L (11.0-82.0) U/L Microbiology and Other Data: Microbiology 11/22/16 23:14 Urine Culture - Final Urine No Growth (<1,000 CFU/mL) Assess/Plan/Problems-Billing Mr Schroeder is a 40 yo M who has no significant PMHx who presented to the ER with c/o abdominal pain and was foudn to have diverticulitis of the sigmoid colon with contained microperforation. - Patient Problems (1) Diverticulitis of large intestine with perforation without abscess Status: Acute Code(s): K57.20 - DVTRCLI OF LG INT W PERFORATION AND ABSCESS W/ O BLEEDING SNOMED Code(s): 3858950 Comment: Pt is even better today. Will d/c home on cipro and flagyl for another 14 days. He has been instructed on a low residue diet. I have sent an rx for oxycodone for pain control as an outpatient. He will follow up with Dr. Amador in about 1-2 weeks. He has been instructed to monitor for fever or worsened abdominal pain and be seen in the ER if he is to develop worsened symptoms. (2) DVT prophylaxis Status: Acute Code(s): WAT6127 - SNOMED Code(s): 086016017 Comment: SQ heparin (3) Full code status Status: Acute Code(s): Z78.9 - OTHER SPECIFIED HEALTH STATUS SNOMED Code(s) : 671168091 Status and Disposition: d/c home
--- NOTE | 2016-11-26 04:11 | DS ---
CC: Dr. Guerra * DISCHARGE SUMMARY: DATE OF ADMISSION: 11/22/16 DATE OF DISCHARGE: 11/25/16 PRIMARY CARE PROVIDER: To be established with Dr. Guerra. PRINCIPAL DIAGNOSIS: Acute sigmoid diverticulitis with microperforation phlegmon. DISCHARGE MEDICATIONS: 1. Cipro 500 mg p.o. twice daily x14 days. 2. Flagyl 500 mg p.o. t.i.d. x14 days. 3. Oxycodone 5 to 10 mg p.o. q.4 hours p.r.n. pain. HOSPITAL COURSE: Mr. Schroeder is a 40-year-old male who presented to the emergency room on 11/22/16 with complaints of severe abdominal pain. The patient underwent CT scan of the abdomen and pelvis which revealed acute diverticulitis of the sigmoid colon with microperforation phlegmon development. The patient was seen in consultation by General Surgery who recommended admission for IV antibiotics. The patient was started on ciprofloxacin and Flagyl IV. Over the course of the next 3 days, the patient's abdominal pain did improve. His diet was slowly advanced from clear liquids to low residue. At this point, the patient states that his pain is much more tolerable. 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 He has been given instructions on what to watch for including worsened abdominal pain, fevers or chills. The patient has been instructed to seek care if he develops any of these symptoms. Additionally, the patient has been instructed to follow up with Dr. Amador in approximately the next 1 to 2 weeks. The patient will continue on Cipro and Flagyl for the next 14 days. In addition, the patient has been prescribed oxycodone to be used for pain control. FOLLOWUP CONCERNS: The patient is being discharged to home today on 11/25/16. He is to follow up with Dr. Guerra on 11/28/16 at 3 p.m. ACTIVITY LEVEL: As tolerated. DIET: Low fiber. CONDITION ON DISCHARGE: Stable. TIME SPENT: Twenty five minutes was spent discharging this patient. [id number]/CPS #: [id number] MTDD
== END 2016-11-25 11:45 | disposition home or self-care (01) | DRG 244 ==
LOC: ED 13:08 → MED 15:03
PROVIDERS: ADMIT Hospitalist; ATTEND Hospitalist
DX: K57.20 Diverticulitis of large intestine with perforation and abscess without bleeding (principal); Z68.41 Body mass index [BMI] 40.0-44.9, adult; Z88.0 Allergy status to penicillin; Z82.49 Family history of ischemic heart disease and other diseases of the circulatory system; Z72.89 Other problems related to lifestyle; E66.9 Obesity, unspecified; Z83.3 Family history of diabetes mellitus
CPT/HCPCS: 36415; 74176; 80048; 80053; 81003; 81015; 83036; 83605; 83690; 85025; 85027; 86140; 87086; A9270-GY; J0744; J1170; J1644; J2405